=== PATIENT | male | born 1995 | race Caucasian/White ===

== ENCOUNTER 2018-03-23 20:37 | Emergency (ER) | payer SELFPAY ==
[~2018-03-23] VITALS: Ht 185.4 cm; Wt 81.6 kg
[2018-03-23 21:29] LABS: BASOPHILS # (AUTO) 0.6 /CMM (0.0-0.2); BASOPHILS % (AUTO) 3.4 % (0.0-2.0); EOSINOPHILS % (AUTO) 0.9 % (0.0-6.0); HEMATOCRIT 41 % (39-51); HEMOGLOBIN 14.4 g/dL (13.5-17.5); LYMPHOCYTES # (AUTO) 2.2 /CMM (0.8-4.8); LYMPHOCYTES % (AUTO) 11.6 % (20.0-44.0); MEAN CORPUSCULAR HEMOGLOBIN 33 PG (26.0-33.0); MEAN CORPUSCULAR HGB CONC 35 g/dl (31.0-36.0); MEAN CORPUSCULAR VOLUME 95 fL (80-96); MONOCYTES % (AUTO) 5.3 % (2.0-12.0); NEUTROPHILS # (AUTO) 14.9 /CMM (1.8-8.9); NEUTROPHILS % (AUTO) 78.8 % (43.0-81.0); PLATELET COUNT (AUTO) 261 /CMM (150-450); RDW COEFFICIENT OF VARIATION 12.4 (11.5-15.0); RED BLOOD CELL COUNT(AUTO) 4.34 MIL/uL (4.5-6.0); WHITE BLOOD COUNT (AUTO) 18.9 K/uL (4.3-11.0)
[2018-03-23] MEDS ORDERED: IV NS 0.9% 500 ML BAG IV ONE (21:30)
[2018-03-23] MEDS ORDERED: ONDANSETRON HCL/PF 4 MG/2 ML VIAL IVP ONE (21:30)
[2018-03-23] MEDS ORDERED: MORPHINE SULFATE INJ 2 MG/ML DISP.SYRIN IV ONE (21:30)
[2018-03-23 21:38] LABS: CALCIUM, SERUM 8.7 mg/dL (8.5-10.1); POTASSIUM 3.6 mmol/L (3.5-5.1)
[2018-03-23 21:45] LABS: ALBUMIN 4.2 g/dL (3.4-5.0); BILIRUBIN,DIRECT 0.1 mg/dL (0.0-0.2); BILIRUBIN,TOTAL 0.2 mg/dL (0.2-1.0); TOTAL PROTEIN, SERUM 7.6 g/dL (6.4-8.2)
[2018-03-23 21:57] LABS: INR 0.92 (0.85-1.15)
--- NOTE | 2018-03-23 22:40 | NUR ---
STARTED 20G IV IN RAC.
--- NOTE | 2018-03-23 22:40 | NUR ---
ASSUMED CARE OF PT.
[2018-03-23] MEDS ORDERED: MORPHINE SULFATE INJ 2 MG/ML DISP.SYRIN ONE (22:42)
[2018-03-23] MEDS ORDERED: ONDANSETRON HCL/PF 4 MG/2 ML VIAL ONE ×2 (22:42→23:56)
[2018-03-23] MEDS ORDERED: MORPHINE SULFATE INJ 4 MG/ML DISP.SYRIN ONE ×2 (22:42→23:57)
--- NOTE | 2018-03-23 23:35 | NUR ---
DR GOODE PAGED PER DR CRUZ. PER ANSWERING SERVICE DR GOODE UNAVAILABLE.
--- NOTE | 2018-03-23 23:46 | NUR ---
CALLED [facility] SPOKE WITH [facility], HE STATED THEY ARE ONLY OPEN FOR PEDIATRICS AND OB AT THE MOMENT.
[2018-03-24] MEDS ORDERED: ONDANSETRON HCL/PF 4 MG/2 ML VIAL IVP ONE
--- NOTE | 2018-03-24 00:55 | NUR ---
PT APPEARS TO BE RESTING COMFORTABLY. PT IS UNABLE TO GIVE A URINE SAMPLE AT THIS TIME. MD NOTIFIED. URINAL IS AT THE BEDSIDE. PT IS ON THE MONITOR AND CONTINOUS PULSE OX. VSS.
--- NOTE | 2018-03-24 01:28 | NUR ---
PT APPEARS TO BE SLEEPING COMFORTABLY. PT IS ON THE MONITOR AND CONITNUOUS PULSE OX. VSS. PT IS STILL UNABLE TO GIVE A URINE SAMPLE.
[2018-03-24] MEDS ORDERED: MORPHINE SULFATE INJ 4 MG/ML DISP.SYRIN ONE (03:51)
[2018-03-24] MEDS ORDERED: ONDANSETRON HCL/PF 4 MG/2 ML VIAL ONE (03:52)
[2018-03-24] MEDS ORDERED: ONDANSETRON HCL/PF 4 MG/2 ML VIAL IV ONE (04:00)
[2018-03-24] MEDS ORDERED: MORPHINE SULFATE INJ 2 MG/ML DISP.SYRIN IV ONE ×2 (04:00)
--- NOTE | 2018-03-24 04:00 | NUR ---
[facility] CALLED FOR [facility]SF[facility]. NOTIFIED OF TRANSFER REQUEST
--- NOTE | 2018-03-24 04:00 | NUR ---
PT IS AWAKE AND IS C/O LEFT JAW PAIN. DR CRUZ NOTIFIED AND NEW ORDERS GIVEN.
--- NOTE | 2018-03-24 04:26 | NUR ---
CALL FROM [facility]. UNABLE TO ACCEPT CASE DUE TO NO CAPACITY.
--- NOTE | 2018-03-24 05:20 | NUR ---
[facility] CALLED REGARDING HIGHER LEVEL OF CARE. FACESHEET AND CT RESULTS FAXED
--- NOTE | 2018-03-24 05:52 | NUR ---
PT APPEARS TO BE RESTING COMFORTABLY WITH NO S/S OF PAIN OR DISTRESS.
[2018-03-24 06:02] LABS: APPEARANCE,URINE CLEAR (CLEAR); BILIRUBIN,URINE NEGATIVE (NEGATIVE); BLOOD, URINE NEGATIVE Ery/uL (NEGATIVE); COLOR,URINE YELLOW (YELLOW); KETONES,URINE TRACE (NEGATIVE); LEUKOCYTE ESTERASE ,URINE NEGATIVE (NEGATIVE); NITRITE, URINE NEGATIVE (NEGATIVE); PROTEIN,URINE NEGATIVE (NEGATIVE); UGLUCOSE NEGATIVE (NEGATIVE); UROBILINOGEN,URINE 0.2 EU/dL (0.2)
[2018-03-24 06:15] LABS: BACTERIA,URINE Few /HPF (None Seen); MUCUS,URINE Few /LPF (None Seen); RBC,URINE 0-2 /HPF (0-2); SQUAMOUS EPITHELIAL CELL,UR Rare /HPF (None Seen); WBC,URINE 0-2 /HPF (0-3)
--- NOTE | 2018-03-24 06:55 | NUR ---
Nithin ratliff in ED - 03/24/18 at 0701 by PARKER PT IS GOING TO CT VIA [facility].
--- NOTE | 2018-03-24 07:07 | NUR ---
CALLING PT'S MOTHER, IRAIS, AT [phone]. PT'S MOTHER IS AT WORK AND CAN NOT CIRCUS RIDER THE PT. PT'S FATHER, ELTON, IS ALSO AT WORK AND NOT AVAILABLE.
--- NOTE | 2018-03-24 07:10 | NUR ---
IV removed. Catheter intact and site benign. Pressure and 4x4 applied to site. No bleeding noted.
[2018-03-24 07:15] VITALS: BP 120/66
--- NOTE | 2018-03-24 07:24 | NUR ---
REPORT GIVEN TO ANDRES WHALEN FOR YG.
--- NOTE | 2018-03-24 07:33 | NUR ---
Patient discharged to home in stable condition. Written and verbal after care instructions given. Patient verbalizes understanding of instruction.
== END 2018-03-24 07:34 | disposition home or self-care (01) ==
LOC: ER 20:39
DX: S02.609A Fracture of mandible, unspecified, initial encounter for closed fracture (principal); S02.2XXA Fracture of nasal bones, initial encounter for closed fracture; S06.0X9A Concussion with loss of consciousness of unspecified duration, initial encounter; S00.81XA Abrasion of other part of head, initial encounter; Y04.2XXA Assault by strike against or bumped into by another person, initial encounter; Y93.89 Activity, other specified; Y92.89 Other specified places as the place of occurrence of the external cause; Y99.8 Other external cause status
CPT/HCPCS: 36415; 70450-TC; 70486-TC; 71045-TC; 80048-TC; 80076-TC; 81000-TC; 83690-TC; 85025-TC; 85730-TC; A4606; J2270; J2405; J7040; Z7610